=== PATIENT | male | born 1995 | race Two or more races ===

== ENCOUNTER 2024-08-21 11:27 | Emergency (ER) | payer MEDICAID, OTHER ==
[~2024-08-21] VITALS: Ht 177.8 cm; Wt 54.7 kg
--- NOTE | 2024-08-21 12:23 | DVH ---
CLINICAL INDICATION: trauma; r/o fx TECHNIQUE: 3 radiographic views of the right hand were obtained. Comparison: None FINDINGS/IMPRESSION: There is a displaced fracture of the right 2nd metacarpal shaft.
--- NOTE | 2024-08-21 13:23 | ED.PDOC ---
Musculoskeletal HPI Comments 29 YEAR OLD MALE PRESENTS FOR POSSIBLEL FRACTURE TO THE RIGHT HAND FELL SKATEBOARDING 3 DAYS AGO PAIN RATED MILD AND LOCATED TO THE INDEX FINGER DENIES LIMITED ROM Chief Complaint: Upper Extremity Time Seen by MD: 12:18 Primary Care Provider: none Reviewed Notes: Nurses Notes, Medications, Allergies Allergies: Coded Allergies: NO KNOWN ALLERGIES (Unverified , 08/21/24) Information Source: Patient Mode of Arrival: Ambulatory Physical Exam General Appearance: No Apparent Distress, Normal HEENT: Normal ENT Inspection, Pharynx Normal, TMs Normal Neck: Full Range of Motion, Non-Tender, Normal, Normal Inspection Respiratory: Chest Non-Tender, Lungs Clear, No Accessory Muscle Use, No Respiratory Distress, Normal Breath Sounds Cardiovascular: No Edema, No JVD, No Murmur, No Gallop, Normal Peripheral Puls es, Regular Rate/Rhythm Breast Exam: Deferred Gastrointestinal: No Organomegaly, Non Tender, No Pulsatile Mass, Normal Bowel Sounds, Soft Genitalia: Deferred Pelvic: Deferred Rectal: Deferred Extremities: No calf tenderness, Normal capillary refill, Normal inspection, Normal range of motion, Non-tender, No pedal edema Musculoskeletal : Apperance: Normal Neurologic: Alert, yard brakeman II-XII nml as Tested, No Motor Deficits, Normal Affect, Normal Mood, No Sensory Deficits Cerebellar Function: Normal Reflexes: Normal Skin: Dry, Normal Color, Warm Lymphatic: No Adenopathy Was a procedure done? Was a procedure done?: No Differential Diagnosis EXT Differential Diagnosis: Fracture, Sprain, Dislocation X-Ray, Labs, Meds, VS Vital Signs Date Time Temp Pulse Resp B/P (MAP) Pulse Ox O2 Delivery O2 Flow Rate FiO2 08/21/24 13:46 98.4 76 18 108/75 (86) 98 98.4 08/21/24 13:46 76 17 98 Room Air 08/21/24 11:47 98.4 76 17 108/75 (86) 98 98.4 PATIENT: ZACH JOSEPHT: [id number]: [id number] : 1995 LOC: ER ROOM / BED: / AGE / SEX: 29 / M ADM STATUS: REG ER SERVICE [id number] ORDERING PHYSICIAN: JORGE WOO NP PROCEDURE(s): RHAN - R HAND 3 VIEW XRAY REASON: r/o fx ORDER NUMBER(s): [id number], ACCESSION NUMBER(s): [id number] CLINICAL INDICATION: trauma; r/o fx TECHNIQUE: 3 radiographic views of the right hand were obtained. Comparison: None FINDINGS/IMPRESSION: There is a displaced fracture of the right 2nd metacarpal shaft. ATED BY: ALESIA HUTCHISON MD DICTATED DATE/TIME: 08/21/241220 SIGNED BY: ALESIA HUTCHISON MD SIGNED DATE/TIME: 08/21/241220 CC: X-Ray, Labs, Meds, VS Comment There is a displaced fracture of the right 2nd metacarpal shaft. Ordered splint. Distal neuro sensation intact on re-evaluation NSAIDs as needed for pain On reevaluation, patient had symptomatic improvement. Patient is stable for discharge at this time. External notes reviewed. Test results and diagnostic imaging interpreted. All diagnostic findings, discharge care, education and instructions provided Follow-up with PCP in 2 to 3 days Patient verbalized understanding and agreed to treatment plan Vital signs stable, afebrile, no acute distress noted Patient ambulatory with strong steady gait Advised to return precautions for any new or worsening symptoms, return to ER immediately for re-evaluation Patient is aware that the purpose of this visit was for an acute medical emergency requiring emergent stabilization. Chronic conditions, including malignancies have not been ruled out. Patient is instructed to follow up with PCP as directed and discharge instructions for continued care and workup. If unable to arrange follow-up, patient is to return to the emergency department for reassessment. Patient (parent or legal guardian if applicable) was given verbal and written discharge instructions and acknowledges understanding. Time of 1ST Reevaluation: 13:33 Reevaluation 1ST: Improved Patient Education/Counseling: Diagnosis, Treatment Family Education/Counseling: Diagnosis, Treatment Departure 1 Departure Time of Disposition: 13:33 Impression: Primary Impression: Metacarpal bone fracture Qualified Codes: S62.320A - Displaced fracture of shaft of second metacarpal bone, right hand, initial encounter for closed fracture Disposition: 01 HOME / SELF CARE / HOMELESS Condition: Stable Critical Care Note Critical Care Time?: No Stability Stability form required: No Heart Score Heart Score: Heart Score Response (Comments) Value History N/A 0 EKG N/A 0 Age N/A 0 Risk Factors N/A 0 Troponin N/A 0 Total 0 JORGE WOO NP Aug 21, 2024 13:23
[2024-08-21 13:46] VITALS: BP 108/75; PULSE 76; RESP 17; TEMP 98.4; O2SAT 98
== END 2024-08-21 13:46 | disposition home or self-care (01) ==
LOC: ER 11:27
DX: S62.320A Displaced fracture of shaft of second metacarpal bone, right hand, initial encounter for closed fracture (principal); V00.131A Fall from skateboard, initial encounter; Y93.51 Activity, roller skating (inline) and skateboarding; Y92.89 Other specified places as the place of occurrence of the external cause; Y99.8 Other external cause status
CPT/HCPCS: 29125; 73130